=== PATIENT | female | born 1955 | race Caucasian/White ===

== ENCOUNTER 2016-08-30 11:07 | Inpatient (IN) | payer SELFPAY ==
[2016-08-30] VITALS (14 sets, daily range): BP systolic 104–132; BP diastolic 67–88; PULSE 70–112; RESP 17–20; TEMP 97.9–98.6; O2SAT 90–100
[~2016-08-30] VITALS: Ht 149.9 cm; Wt 60.5 kg
[2016-08-30] MEDS ORDERED: TRAZ100T4 PO (11:40)
[2016-08-30] MEDS ORDERED: LISI10TA3 PO (11:40)
[2016-08-30] MEDS ORDERED: RANI1TAB5 PO (11:40)
[2016-08-30] MEDS ORDERED: LISI-515 PO (11:40)
[2016-08-30] MEDS ORDERED: LEVO175T2 PO (11:40)
[2016-08-30] MEDS ORDERED: SODIUM CHLORIDE 0.9% FLUSH 10 ML FLUSH IVF PRN (11:45)
--- NOTE | 2016-08-30 11:47 | PD ---
HPI Chief Complaint: Chest Pain Time Seen by Provider: 11:32 Travel History International Travel<30 days: No Contact w/Intl Traveler<30days: No Traveled to known affect area: No History of Present Illness HPI The patient was seen and examined in the presence of the nurse. This patient complains of chest pain. Location is left upper chest. Severity is moderate. Duration 3 days. No alleviating factors. It is not exertional. She is not short of breath. No fever or cough. Denies chest wall injury. She says she had a stress test 15 years ago but nothing recent. 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 She does have hypertension PFS Past Medical History ?: Not Social History Alcohol Use: No Tobacco Use: Yes Substance Use: No Allergies-Medications (Allergen,Severity, Reaction): Coded Allergies: Penicillin (Verified Allergy, Mild, 08/30/16) Reported Meds & Prescriptions Reported Meds & Active Scripts Active Reported Ranitidine 75 (Ranitidine HCl) 75 Mg Tab 75 Mg PO DAILY Take 30 to 60 minutes before eating food or drinking beverages that cause heartburn. Levothyroxine (Levothyroxine Sodium) 175 Mcg Tab 175 Mcg PO DAILY Trazodone (Trazodone HCl) 100 Mg Tab 100 Mg PO HS Lisinopril 10 Mg Tab 10 Mg PO HS Lisinopril 20 Mg Tab 20 Mg PO DAILY Review of Systems General / Constitutional: No: Fever Eyes: No: Visual changes HENT: No: Headaches Cardiovascular: Positive: Chest Pain or Discomfort Respiratory: No: Shortness of Breath Gastrointestinal: No: Abdominal Pain Genitourinary: No: Dysuria Musculoskeletal: No: Pain Skin: No Rash Neurologic: No: Weakness Psychiatric: No: Depression Endocrine: No: Polydipsia Hematologic/Lymphatic: No: Easy Bruising Physical Exam Narrative GENERAL: Well-nourished, well-developed patient in no apparent distress. SKIN: Focused skin assessment reveals no rash and nodules. Skin is Warm and dry. HEAD: Atraumatic. Normocephalic. EYES: Pupils equal and round. No scleral icterus. No injection or drainage. ENT: No nasal bleeding or discharge. Mucous membranes pink and moist. NECK: Trachea midline. No JVD. CARDIOVASCULAR: Regular rate and rhythm. No murmur appreciated. RESPIRATORY: No accessory muscle use. Clear to auscultation. Breath sounds equal bilaterally. GASTROINTESTINAL: Abdomen soft, non-tender, nondistended. Hepatic and splenic margins not palpable. MUSCULOSKELETAL: No obvious deformities. No clubbing. No cyanosis. No edema. Has very prominent and readily reproducible chest wall tenderness in the left upper chest. She has visible wincing and pulling away a lot of pain when I palpate the area that she complains of having chest pain in. NEUROLOGICAL: Awake and alert. No obvious cranial nerve deficits. Motor grossly within normal limits. Normal speech. PSYCHIATRIC: Appropriate mood and affect; insight and judgment normal. Data Data Last Documented VS Vital Signs Date Time Temp Pulse Resp B/P Pulse Ox O2 Delivery O2 Flow Rate FiO2 08/30/16 12:56 102 17 111/75 99 Nasal Cannula 2 08/30/16 11:36 98.2 Orders Electrocardiogram (08/30/16 11:38) Basic Metabolic Panel (Bmp) (08/30/16 11:38) Ckmb (Isoenzyme) Profile (08/30/16 11:38) Complete Blood Count With Diff (08/30/16 11:38) Troponin I (08/30/16 11:38) Ecg Monitoring (08/30/16 11:38) Iv Access Insert/Monitor (08/30/16 11:38) Oximetry (08/30/16 11:38) Sodium Chloride 0.9% Flush (Ns Flush) (08/30/16 11:45) Acetamin-Hydrocod 325-5 Mg (Suring 5-325 (08/30/16 12:00) CKMB (08/30/16 11:50) CKMB% (08/30/16 11:50) Aspirin (Aspirin) (08/30/16 12:45) Prothrombin Time / Inr (Pt) (08/30/16 12:40) Act Partial Throm Time (Ptt) (08/30/16 12:40) Chest, Single Ap (08/30/16 ) Heparin Inj (Heparin Inj) (08/30/16 12:58) Aspirin Chew (Aspirin Chew) (08/30/16 12:57) Heparin Inj (Heparin Inj) (08/30/16 12:57) Metoprolol Tartrate (Lopressor) (08/30/16 13:00) Nitroglycerin 2% Oint (Nitroglycerin 2% (08/30/16 13:00) Admit Order (Ed Use Only) (08/30/16 13:02) Labs Laboratory Tests Test 08/30/16 11:50 White Blood Count 21.3 TH/MM3 Red Blood Count 6.00 MIL/MM3 Hemoglobin 16.9 GM/DL Hematocrit 49.7 % Mean Corpuscular Volume 82.9 FL Mean Corpuscular Hemoglobin 28.1 PG Mean Corpuscular Hemoglobin 34.0 % Concent Red Cell Distribution Width 12.9 % Platelet Count 344 TH/MM3 Mean Platelet Volume 8.7 FL Neutrophils (%) (Auto) 74.8 % Lymphocytes (%) (Auto) 13.1 % Monocytes (%) (Auto) 9.5 % Eosinophils (%) (Auto) 0.7 % Basophils (%) (Auto) 1.9 % Neutrophils # (Auto) 16.0 TH/MM3 Lymphocytes # (Auto) 2.8 TH/MM3 Monocytes # (Auto) 2.0 TH/MM3 Eosinophils # (Auto) 0.1 TH/MM3 Basophils # (Auto) 0.4 TH/MM3 CBC Comment DIFF FINAL Differential Comment Sodium Level 136 MEQ/L Potassium Level 3.9 MEQ/L Chloride Level 102 MEQ/L Carbon Dioxide Level 23.4 MEQ/L Anion Gap 11 MEQ/L Blood Urea Nitrogen 13 MG/DL Creatinine 0.98 MG/DL Estimat Glomerular Filtration 58 ML/MIN Rate Random Glucose 117 MG/DL Calcium Level 9.1 MG/DL Total Creatine Kinase 397 U/L Creatine Kinase MB 39.4 NG/ML Creatine Kinase MB % 9.9 % Troponin I 15.70 NG/ML [facility] Medical Decision Making Medical Screen Exam Complete: Yes Emergency Medical Condition: Yes Medical Record Reviewed: Yes Differential Diagnosis Differential diagnosis includes MS, angina, pericarditis, pleurisy, GERD, anxiety. Narrative Course I have reviewed the patient's electronic medical record. I reviewed her EKG which shows sinus rhythm but no ST elevation in consecutive leads. She does have what appears to be ST depression in one inferior lead and [address] elevation in aVL and maybe V2 Extended cardiac monitoring reveals sinus rhythm without ectopy Heart rate is 90 I gave her 4 baby aspirin IV placed CBC shows leukocytosis with normal hemoglobin and platelets Metabolic profile shows normal creatinine CK is elevated with an MB percent of 9.9 Troponin is significantly elevated at 15.7 Patient's EKG does not obviously meet STEMI criteria and she has such obvious chest wall component to her pain. Did not expect such an elevated cardiac enzymes set. Case reviewed in detail with pick up operator Dr. Raffi Nolan I repeated a second EKG Patient critically ill with an acute non-STEMI but having active pain and Dr. Vidal recommends emergent heart catheterization I gave her a 4000 unit heparin bolus as well as a dose of metoprolol and Nitropaste Her blood pressure is 115 systolic and is not quite high enough for nitroglycerin drip since it is under 120 Paramedics accompanied emergently take her to the catheterization lab She'll be admitted to [facility] Critical Care Narrative Aggregate critical care time was 40 minutes. Time to perform other separately billable procedures was not included in the critical care time. My time did not include minutes spent treating any other patients simultaneously or on activities that did not directly contribute to the patient's treatment. The services I provided to this patient were to treat and/or prevent clinically significant deterioration that could result in: Cardiopulmonary arrest, myocardial damage, cardiogenic shock I provided critical care services requiring my management, as noted below: Chart data review, documentation time, medication orders and management, vital sign assessments/reviewing monitor data, ordering and reviewing lab tests, ordering and interpreting/reviewing x-rays and diagnostic studies, care of the patient and discussion of the patient with the admitting physicians. Diagnosis Primary Impression: Acute non-ST elevation myocardial infarction (NSTEMI) Admitting Information Admitting Physician Requests: Joseph Brewster MD Aug 30, 2016 11:47
[2016-08-30] MEDS ORDERED: ACETAMINOPHEN/HYDROcodone 325 MG/5 MG TAB PO ONE (12:00)
[2016-08-30 12:06] LABS: BASOPHIL # 0.4 TH/MM3 (0-0.2); BASOPHIL % 1.9 % (0.0-2.0); EOSINOPHIL # 0.1 TH/MM3 (0-0.4); EOSINOPHIL % 0.7 % (0.0-4.0); HEMATOCRIT 49.7 % (35.0-46.0); HEMO FLAGS DIFF FINAL; LYMPH % 13.1 % (9.0-44.0); LYMPHOCYTE # 2.8 TH/MM3 (1.0-4.8); MEAN CELL VOLUME 82.9 FL (80.0-100.0); MEAN CORPUSCULAR HEMOGLOBIN 28.1 PG (27.0-34.0); MONO % 9.5 % (0.0-8.0); NEUT % 74.8 % (16.0-70.0); PLATELET COUNT 344 TH/MM3 (150-450); RED CELL DISTRIBUTION WIDTH 12.9 % (11.6-17.2); WHITE BLOOD COUNT 21.3 TH/MM3 (4.0-11.0)
[2016-08-30 12:11] LABS: POTASSIUM 3.9 MEQ/L (3.5-5.1)
[2016-08-30 12:14] LABS: BICARBONATE 23.4 MEQ/L (21.0-32.0)
[2016-08-30 12:33] LABS: CKMB 39.4 NG/ML (0.5-3.6)
[2016-08-30] MEDS ORDERED: ASPIRIN 325 MG TAB PO ONE (12:45)
[2016-08-30] MEDS ORDERED: HEPARIN SODIUM - IV 10,000 UNITS/10 ML VIAL IV STA (12:57)
[2016-08-30] MEDS ORDERED: ASPIRIN 81 MG CHEW TAB PO STA (12:57)
[2016-08-30] MEDS ORDERED: HEPARIN SODIUM - IV 10,000 UNITS/10 ML VIAL ONE ×2 (12:58→14:18)
[2016-08-30] MEDS ORDERED: NITROGLYCERIN 2% OINT 1 GM PACKET TOPICAL ONE (13:00)
[2016-08-30] MEDS ORDERED: METOPROLOL TARTRATE 50 MG TAB PO ONE (13:00)
[2016-08-30 13:05] LABS: APTT (PATIENT) 28.6 SEC (24.3-30.1)
[2016-08-30] MEDS ORDERED: HEPARIN-NS/PF INJ 500 ML ONE (13:05)
--- NOTE | 2016-08-30 13:06 | RADHPO ---
EXAM DATE/TIME: 08/30/2016 12:58 [place] COMPARISON: No previous studies available for comparison. INDICATIONS : STEMI alert. Chest pain. MEDICAL HISTORY : Hypertension. Irritable bowel syndrome. Thyroid disease. SURGICAL HISTORY : None. ENCOUNTER: Initial ACUITY: 3 days PAIN SCORE: 10/10 LOCATION: Left upper chest FINDINGS: A single view of the chest demonstrates the lungs to be symmetrically aerated without evidence of mas s, infiltrate or effusion. The cardiomediastinal contours are unremarkable. Osseous structures are intact. CONCLUSION: 1. No acute cardiopulmonary findings Leighton Rivera MD on August 30, 2016 at 13:04 Board Certified Radiologist. This report was verified electronically.
[2016-08-30] MEDS ORDERED: MIDAZOLAM HCL 2 MG/2 ML VIAL ONE (13:54)
[2016-08-30] MEDS ORDERED: ADENOSINE STRESS TEST INJ 90 MG/30 ML VIAL ONE (14:14)
[2016-08-30] MEDS ORDERED: SODIUM NITROPRUSSIDE 50 MG/2 ML VIAL ONE (14:25)
[2016-08-30] MEDS ORDERED: CLOPIDOGREL 300 MG TAB ONE (14:38)
[2016-08-30] MEDS ORDERED: TIROFIBAN INFUSION INJ 250 ML IV ONE (14:38)
[2016-08-30] MEDS ORDERED: TIROFIBAN INFUSION INJ 250 ML IV SCH (14:52)
[2016-08-30] MEDS ORDERED: MISC INFORMATION XX ONE (15:00)
[2016-08-30] MEDS ORDERED: SODIUM CHLORIDE 0.9% FLUSH 10 ML FLUSH IV FLUSH PRN (15:00)
--- NOTE | 2016-08-30 15:11 | CATHPROC ---
peerTransfer HIS Report Study Information Scheduled Start Study Start 08/30/2016 Aug 30 2016 1:27PM Referring Institution Admit Source Facility Department 1 Transfer in from another acute care facility [facility] - [facility] Parole Officer Physician and Clinical Staff Initial Raffi Kahn Job Estimator Arielle South,NUSRAT Recorder Evaristo Bolanos RCIS(BS) Scrub Santos Ricci,RT(R) Procedures Performed Procedure Location (Site) Vessel Name Coronary Angiograms LCA Left Coronary Coronary Angiograms RCA Right Coronary L Heart Cath LV Gram-hand inj. LV LV Ventricle Stent LAD Mid Left Coronary Wire insertion Fem Art (right) Femoral Art Equipment Time Hydraulic Riveter Description Size Mfg Part Number Used/Scraped [id number] 14:09 [employer] WIRE, ASAHI PROWATER 180CM 180CM Used *[id number] TRANSDUCER, TRUWAVE [id number] 13:31 SOLORZANO VILLARREAL * Used W/STOCKCOCK *[id number] [id number] *[id number] [id number] *[phone] *[id number] 13:31 MEDLINE IND[employer] PACK, CCL CUSTOM * Used *[id number] 13:31 [employer] PACER PEN, SKIN DUAL W/ RULER * Used *[id number] 14:35 MEDTRONIC STENT, 2.5 12 INTEGRITY 2.5 12 Used *[id number] 14:25 MEDTRONIC STENT, 2.5 8 INTEGRITY 2.5 8 Used *[id number] 13:55 BeMo MEDICAL 30 BARBI INDEFLATOR Used *[id number] 13:55 BeMo MEDICAL SHEATH, FR6.5 PRELUDE 11CM FR 6.5 038ACT Used *[id number] 13:31 [employer]Mo MEDICAL WIRE, 3MMJ .035 180CM 180CM Used *[id number] 13:31 NAMIC MANIFOLD, 4 PORT * Used *[id number] 13:31 NYCOMED OMNIPAQUE, 350 MG, 150ML 150ML [id number] Used [id number] 13:31 TIM MEDICAL BLANKET,WARM AIR CCL * Used *[id number] 13:31 TERUMO MEDICAL SHEATH, FR4 TERUMO (10CM) FR 4 [id number] Used 14:13 [employer] PRIME WIRE, VERRATA 185CM 185CM [id number] *[id number] Used Equipment Model, Serial, Lot Number and Expiration Data Description Model Number Serial Number Lot Number Expiration Date FER WEST [id number] 07-25-2019 STENT, 2.5 12 INTEGRITY [id number] 03-01-2018 STENT, 2.5 8 INTEGRITY [id number] 12-15-2017 History: Current Medications Medication Dosage/Unit Route Frequency Last Date/Time Taken LISINOPRIL History: Allergies Allergy Reaction Penicillin History: Risk Factors Family History of Hypertension Dyslipidemia Previous NE Previous Heart Failure Premature CAD Yes No No No No Prior Valve Prior PCI Prior CABG Surgery No No No Cerebrovascular Peripheral Artery Chronic Lung On Dialysis Diabetes Disease Disease Disease No No No No No History: Symptoms/Diagnosis Selection Items Chest pain History: Stress Tests Stress or Imaging Studies Performed No Labs Hgb (g/dl) Hct (%) RBC (MIL/MM3) WBC (l/cumm) Platelets (thousands) 12.00-18.00 37.00-55.00 4.80-6.20 4.80-10.80 140.00-450.00 16.9 49.7 6 21.3 344 Glucose (mg/dl) BUN (mg/dl) Creatinine (mg/dl) BUN:Creatinine (1:x) 60.00-110.00 8.00-20.00 0.10-9.00 10.00-20.00 117 13 0.9 14.4 Na (meq/l) K (meq/l) 138.00-146.00 3.80-5.10 136 3.9 PT (sec) PTT (sec) INR (PTT:PT) 9.40-11.40 25.10-32.70 0.50-2.00 11 28.6 1 Troponin I (ng/ml) CPK (u/l) CPK-MB (ng/ML) 0.40-2.30 37.00-289.00 0.00-7.00 15.7 39.4 9.9 Medication Medication Total Dose (Bolus/Oral) Medication Total Dosage/Unit 1% XYLOCAINE 20 mL AGGRASTAT BOLUS 29.7 mL HEPARIN 3600 units PLAVIX 600 mg VERSED 1 mg Medications (Bolus/Oral) Medication Time Given Dosage/Unit Administered By Reason VERSED 08/30/2016 1:59:00 PM 1 mg Arielle South 1 mg VERSED given in lab by Arielle South RN in Right Antecubital via Peripheral IV. Ordered by Raffi Llanes. 1% XYLOCAINE 08/30/2016 2:02:54 PM 20 mL Raffi Nolan 20 mL 1% XYLOCAINE given in lab by Raffi Nolan in Right Groin via Subcutaneous. Ordered by Raffi Sauceda. HEPARIN 08/30/2016 2:12:00 PM 3600 units Arielle South 3600 units HEPARIN given in lab by Arielle South RN in Right Antecubital via Peripheral IV. Order ed by Raffi Nolan. AGGRASTAT BOLUS 08/30/2016 2:40:54 PM 29.7 mL Arielle South 29.7 mL AGGRASTAT BOLUS given in lab by Arielle South RN in Right Antecubital via Peripheral IV. Ordered by Raffi Nolan. PLAVIX 08/30/2016 2:45:00 PM 600 mg Arielle South 600 mg PLAVIX given in lab by Arielle South RN via Oral. Ordered by Raffi Nolan. Medication (Drip) Medication Time Given Dosage/Unit Concentration/Unit Diluent (ml) Solution ADENOSINE DRIP 08/30/2016 2:21:29 PM 140 mcg/kg/min 90 mg 90 NaCl .9 140 mcg/kg/min ADENOSINE DRIP given in lab by Arielle South RN in Right Antecubital via Periphera l IV. Pump/Drip Flow = 498.12 ml/hr using NaCl .9 with a concentration of 90 mg in 90 ml. Ordered by Raffi Nolan. AGGRASTAT DRIP 08/30/2016 2:41:00 PM 0.15 mcg/kg/min 12.5 mg 250 NaCl .9 0.15 mcg/kg/min AGGRASTAT DRIP given in lab by Arielle South RN in Right Antecubital via Peripher al IV. Pump/Drip Flow = 10.67 ml/hr using NaCl .9 with a concentration of 12.5 mg in 250 ml. Ordered by Raffi Nolan. IV Solutions 08/30/2016 1:39:50 PM 0 mL (IV) 500 NaCl .9 IV Solutions given in lab by Arielle South, RN in Right Antecubital via Peripheral IV. Pump/Drip F low = 20 ml/hr using NaCl .9. Ordered by Raffi Nolan. Initial Case Assessment Cardiovascular HR Rhythm NIBP Chest Pain 72 STEMI 99/74 0 Edema Present Skin color Skin None Normal Warm Dry Circulatory - Right Pulses Dorsalis Pedis Femoral 2 2 Scale (0,1,2,3,4,d) Circulatory - Left Pulses Dorsalis Pedis Femoral 2 2 Scale (0,1,2,3,4,d) Circulatory - Lower Extremities Color Lower Right Color Lower Left Normal Normal Neurological State Oriented to time-place- Alert Moves all extremities person Respiration - General Respiration Rate SpO2 (%) (B/min) 23 99 Final Case Assessment Cardiovascular HR Rhythm NIBP Chest Pain 72 STEMI 99/74 0 Edema Present Skin color Skin None Normal Warm Dry Circulatory - Right Pulses Dorsalis Pedis Femoral 2 2 Scale (0,1,2,3,4,d) Circulatory - Left Pulses Dorsalis Pedis Femoral 2 2 Scale (0,1,2,3,4,d) Circulatory - Lower Extremities Color Lower Right Color Lower Left Normal Normal Neurological State Oriented to time-place- Alert Moves all extremities person Respiration - General Respiration Rate SpO2 (%) (B/min) 23 99 Chronological Log Time Study Chronological Log 13:39:29 Patient arrived via Bed. 13:39:30 Patient Name, D.O.B, / Armband Verified By R.N. 13:39:31 Consent signed by the physician and the patient and verified by the Adult Parole Officer staff. 13:39:31 Pre-op and post- op instructions given; patient acknowledges understanding of instructions. Verbal Stimulation=2 Physical Stimulation=2 Airway=2 Respiration=~RESPIRATION~ TOTAL=8. (0=abse nt, 1=limited, 13:39:38 2=present) 13:39:41 Patient has been NPO for Less than 6Hrs. 13:39:42 Skin Breakdown- 13:39:44 Patient Warmer Placed on the Table. 13:39:45 Disposable Defibrillator Pads Placed On Patient. 13:39:49 A # 20 IV was noted in the Antecubital (left). Grade = 0 13:39:50 A # 20 IV was noted in the Antecubital (right). Grade = 0 IV Solutions given in lab by Arielle South, RN in Right Antecubital via Peripheral IV. Pump/ Drip Flow = 20 ml/hr 13:39:50 using NaCl .9. Ordered by Raffi Nolan. 13:39:51 History and physical on the chart or being dictated. Assessment: Initial Case, HR=72 BPM, Rhythm=STEMI, NIBP=99/74 mmhg, Chest Pain=0, Edema=None, Color=Normal, Skin = Warm, Dry Right Pulses: Flo Ped=2, Femoral=2 Left Pulses: Flo Ped=2, Femoral=2 13:39:51 Lower Right Extremities: Color=Normal Lower Left Extremities: Color=Normal Neurological: State=Alert, Ox3, [place] Respiration: Resp=23 B/min, SpO2=99 % Vitals capture started with the following parameters, Patient=Adult, Interval=15 min, Initial P izvjxrb=639 mmHg, 13:43:53 Deflation Rate=5 mmHg 13:44:33 HR=95 bpm, JZPY=873/76 mmhg, Resp=17 B/min, Pain=0, Eri=10, Martinez=2 13:47:22 Bilateral groins prepped with 2% chlorhexidine, and with a 3 min. waiting time. 13:49:23 HR=72 bpm, BPOI=483/75 mmhg, SpO2=97.0 %, Resp=12 B/min, Pain=0, Eri=10, Martinez=2 13:50:59 Pressure channel 1 zeroed. 13:53:57 MD arrived. 13:54:22 HR=71 bpm, NIBP=99/74 mmhg, SpO2=97.0 %, Resp=13 B/min, Pain=0, Eri=10, Martinez=2 13:58:52 Reference ECG taken 1 mg VERSED given in lab by Arielle South, RN in Right Antecubital via Peripheral IV. Ordere d by An, 13:59:00 Raffi. 13:59:21 HR=74 bpm, JXVO=657/76 mmhg, SpO2=95.0 %, Resp=11 B/min, Pain=0, Eri=10, Martinez=2 Time Out. Correct patient, correct procedure,correct physician, power injector not loaded with contrast with surgical 14:02:09 team present. Time Out Concurred by MD, individual staff in procedure 14:02:10 Case Start 20 mL 1% XYLOCAINE given in lab by Raffi Nolan in Right Groin via Subcutaneous. Ordered by An, 14:02:54 Raffi. 14:04:22 HR=75 bpm, SCFQ=252/68 mmhg, SpO2=96.0 %, Resp=16 B/min, Pain=0, Eri=10, Martinez=2 14:05:10 A SHEATH, FR4 TERUMO (10CM) FR 4 was advanced into the Fem Art (right) using the Percutaneo us technique. 14:05:21 Activated Clotting Time Drawn A JR 4.0 INFINITI CATHETER FR 4 was advanced over a wire. OMNIPAQUE, 350 MG, 150ML 150ML was us ed for 14:05:32 injections. Recorded Pressure: LV, HR=72, Condition=Condition 1 14:06:08 (Left Ventricle) LV 103/5/11 14:06:12 The LV was manually injected with 8 cc's and visualized. OMNIPAQUE, 350 MG, 150ML 150ML use d. Recorded Pressure: LV, Ao, HR=71, Condition=Condition 1 14:06:24 (Left Ventricle) LV 97/-3/23, (Aorta) Ao 99/68/82 Recorded Pressure: Ao, HR=73, Condition=Condition 1 14:06:32 (Aorta) Ao 104/70/84 14:06:53 The RCA was injected and visualized at various angles. OMNIPAQUE, 350 MG, 150ML 150ML used . After removing the current catheter a JL 4.0 INFINITI CATHETER FR 4 was advanced over a WIRE, 3 MMJ .035 180CM 14:07:01 180CM. 14:07:08 The LCA was injected and visualized at various angles. OMNIPAQUE, 350 MG, 150ML 150ML used . 14:09:00 ACT (Normal Range 90-180) = 179 14:09:26 HR=72 bpm, HMME=910/69 mmhg, SpO2=97.0 %, Resp=19 B/min, Pain=0, Eri=10, Martinez=2 3600 units HEPARIN given in lab by Arielle South RN in Right Antecubital via Peripheral IV. Ordered by An, 14:12:00 Raffi. 14:12:39 Catheter was removed A SHEATH, FR6.5 PRELUDE 11CM FR 6.5 was exchanged in the Fem Art (right). This was necessary in order to 14:12:59 accomodate a larger catheter. 14:14:25 HR=73 bpm, CKML=287/70 mmhg, SpO2=96.0 %, Resp=16 B/min, Pain=0, Eri=10, Martinez=2 A XB 3.5 GUIDE CATHETER FR 6 was advanced over a wire. OMNIPAQUE, 350 MG, 150ML 150ML was used for 14:17:47 injections. 14:18:05 A PRIME WIRE, VERRATA 185CM 185CM was inserted via Fem Art (right). 14:18:17 Flow Wire was was placed in the LAD Mid. The FFR measures 0.8 percent. The IFR measures ~IF R~ Percent. 14:19:26 HR=73 bpm, HAWM=450/71 mmhg, SpO2=97.0 %, Resp=18 B/min, Pain=0, Eri=10, Martinez=2 140 mcg/kg/min ADENOSINE DRIP given in lab by Arielle South, RN in Right Antecubital via Per ipheral IV. 14:21:29 Pump/Drip Flow = 498.12 ml/hr using NaCl .9 with a concentration of 90 mg in 90 ml. Ordered by Raffi Nolan. 14:24:23 HR=68 bpm, KABF=622/78 mmhg, SpO2=96.0 %, Resp=16 B/min, Pain=0, Eri=10, Martinez=2 14:24:57 Activated Clotting Time Drawn An STENT, 2.5 8 INTEGRITY 2.5 8 Bare Metal Stent was inserted through a XB 3.5 GUIDE CATHETER F R 6 over a 14:26:49 PRIME WIRE, VERRATA 185CM 185CM. A STENT, 2.5 8 INTEGRITY 2.5 8 was deployed using a 30 BARBI INDEFLATOR at 9 atmospheres for 12 s econds in the 14:27:21 LAD Mid. 14:29:26 HR=70 bpm, NGDQ=255/75 mmhg, SpO2=98.0 %, Resp=14 B/min, Pain=0, Eri=10, Martinez=2 14:30:00 Delivery device removed An STENT, 2.5 12 INTEGRITY 2.5 12 Bare Metal Stent was inserted through a XB 3.5 GUIDE CATHETER FR 6 over a 14:34:17 PRIME WIRE, VERRATA 185CM 185CM. 14:34:27 HR=70 bpm, JYYA=548/78 mmhg, SpO2=97.0 %, Resp=24 B/min, Pain=0, Eri=10, Martinez=2 14:34:52 ACT (Normal Range 90-180) = 253 A STENT, 2.5 12 INTEGRITY 2.5 12 was deployed using a 30 BARBI INDEFLATOR at 9 atmospheres for 12 seconds in the 14:35:09 LAD Mid. 14:37:02 Delivery device removed 14:39:24 HR=65 bpm, GUVH=457/84 mmhg, SpO2=98.0 %, Resp=19 B/min, Pain=0, Eri=10, Martinez=2 14:39:49 Wire removed 14:39:56 Catheter was removed 14:40:07 Case End 29.7 mL AGGRASTAT BOLUS given in lab by Arielle South RN in Right Antecubital via Periphera l IV. Ordered by 14:40:54 Raffi Nolan. 0.15 mcg/kg/min AGGRASTAT DRIP given in lab by Arielle South RN in Right Antecubital via Pe ripheral IV. 14:41:00 Pump/Drip Flow = 10.67 ml/hr using NaCl .9 with a concentration of 12.5 mg in 250 ml. Ordered b y Raffi Nolan. Assessment: Final Case, HR=72 BPM, Rhythm=STEMI, NIBP=99/74 mmhg, Chest Pain=0, Edema=None, Color=Normal, Skin = Warm, Dry Right Pulses: Flo Ped=2, Femoral=2 Left Pulses: Flo Ped=2, Femoral=2 14:41:35 Lower Right Extremities: Color=Normal Lower Left Extremities: Color=Normal Neurological: State=Alert, Ox3, [place] Respiration: Resp=23 B/min, SpO2=99 % 14:44:58 PZNP=034/79 mmhg, Pain=0, Eri=10, Martinez=2 14:45:00 600 mg PLAVIX given in lab by Arielle South RN via Oral. Ordered by Raffi Nolan. 14:49:30 TUDU=921/81 mmhg, Pain=0, Eri=10, Martinez=2 14:54:25 In the Fem Art (right) the sheath was sutured in place by Raffi Nolan. 14:54:29 Sterile dressing applied to site 14:54:30 No case complications noted. 14:54:31 Cine recording checked. 14:54:34 Bedside Report will be given. 14:54:35 Implantable Device card placed in patient's chart. 14:54:38 Contrast Scanned 14:54:42 A Left Heart Cath was performed. 14:54:43 [facility] moved to [facility] End Study - Contrast Media Used In Study Contrast Total Opened (mL) Total Used (mL) Total Wasted (mL) Omnipaque 100 100 0 End Study - Maximum Contrast Load Max Contrast Load (mL) 329.5 End Study - Radiation Exposure Fluoro Time (minutes) 7.6 End Study - Patient Disposition Complications Transferred To Interventional Outcome No Critical Care Bed successful
[2016-08-30] MEDS ORDERED: IOHEXOL 350 MG/ML 100 ML BTL (for Cath Lab) OTHER ONE (15:43)
--- NOTE | 2016-08-30 16:59 | MB ---
cc: ARIEL DUNN M.D. DATE OF CONSULTATION 08/30/2016 HISTORY Chayo is a very pleasant 61-year lady who developed chest pain on Monday, intermittent. Comes to the [facility] and found to have anteroseptal Q-waves with biphasic T-waves V1, V2, V3. ST elevation of probably 2 mm with what looks like some possible reciprocal changes in the inferior leads and a left anterior fascicular block. Also 1-[address]-segment elevation in lead I and aVL. The patient was having chest pain in the [facility]. A STEMI was called. She otherwise denies any fever, chills, cough, GI or bleeding, orthopnea, paroxysmal nocturnal dyspnea, syncope or dizziness. PAST MEDICAL HISTORY Per history of present illness. SOCIAL HISTORY Denies tobacco or alcohol use. ALLERGIES PENICILLIN. MEDICATIONS PRIOR TO ADMISSION: 1. Ranitidine. 2. Levothyroxine. 3. Trazodone. 4. Lisinopril 10. Medications in the hospital: 1. Metoprolol 50 times one. 2. 2 inch of Nitro paste. 3. Heparin bolus. 4. Aspirin 324. PHYSICAL EXAMINATION VITAL SIGNS: Pulse 102, respiratory rate 17, temperature 98.2, blood pressure 111/75. Saturation 99% on 2 liters nasal cannula. GENERAL: She is alert and oriented times three. In no distress distress. NECK: Supple. No JVD or bruit. CARDIOVASCULAR: Normal S1-S2. No murmurs, rubs, or gallops. . ABDOMEN: Soft and nontender. Nondistended with positive bowel sounds. EXTREMITIES: No extremity edema. IMAGING A chest x-ray shows no acute cardiopulmonary findings. LABORATORY DATA White count 21.3, hemoglobin 16.9, hematocrit 49.7, platelet count 344. Sodium 136, potassium 3.9, chloride 102, bicarbonate 22.4, BUN 13, creatinine 0.98. CK 397, CK-MB is 39.4 and CK-MB percent is 9.9%. Troponin is 15.70. INR 1.0. EKG shows normal sinus rhythm at 91 beats per minute, anteroseptal Q-waves with [address]-segment elevation in lead V2, V1, V3. Biphasic T-waves V1, V2, V3, V4. ST elevation of 1-2 mm in lead I, aVL with T-wave inversions as well. Left anterior fascicular block with J point depression of 1 mm II, III, aVF. DIAGNOSES She has the following diagnoses: 1. Subacute ST-elevation myocardial infarction. 2. Polycythemia. 3. Elevated white count. DISCUSSION At this point in time the patient is still having chest pain, therefore STEMI alert has been called. I explained to the patient the risk of the procedure. There is a 5-10% chance of , stroke, heart attack, bleeding, infection, need for dialysis, need for emergency bypass surgery, need for surgery, need for blood transfusion, anaphylaxis, arrhythmia, bleeding, infection. The patient understands and consents. The plan is for emergent left heart catheterization. I agree with aspirin and heparin, nitro and beta blockers. MD LUIS Her/KK /2:00 PM /4:38 PM
[2016-08-30] MEDS ORDERED: SODIUM CHLORIDE 0.9% FLUSH 10 ML FLUSH IV FLUSH SCH (21:00)
[2016-08-30] MEDS ORDERED: CARVEDILOL 3.125 MG TAB PO SCH (21:00)
[2016-08-30] MEDS ORDERED: FUROSEMIDE 20 MG/2 ML VIAL IV PUSH ONE (21:00)
[2016-08-30] MEDS ORDERED: ATORVASTATIN 10 MG TAB PO SCH (21:00)
--- NOTE | 2016-08-30 22:25 | MA ---
cc: ARIEL DUNN M.D. DATE: 08/30/2016 PROCEDURE PERFORMED: 1. Left heart catheterization. 2. Left ventriculography. 3. Coronary angiography. 4. FFR of the iep-cl-xmwuab LAD. INDICATION: STEMI. Unstable angina. [place] [employer], class IV angina. Cardiomyopathy. Congestive heart failure. PROCEDURE: The patient was brought to the Cardiac Catheterization Laboratory, prepped and draped in the usual sterile fashion. 10 cc of 1% lidocaine was used to locally anesthetize the right common femoral artery. A 4 Vietnamese sheath was successfully placed in the right common femoral artery. 4 Vietnamese JR4 and JL4 catheters were used to perform left and right coronary angiography and left ventriculography. Also note in traversing the right common iliofemoral artery there was difficulty. I had to steer the 0.035 J-tip guide wire beyond this segment. Thereafter all catheter exchanges were done over a long 0.035 J-tip guide wire. FINDINGS: Opening pressure 100/5/10, ejection fraction 35 to 40%. The anterior wall is actually hypokinetic. The apical actually has normal wall motion. The inferior wall appears to be possibly mildly hypokinetic. The anterior base is hypokinetic. The right coronary is dominant. It is occluded in the proximal segment with bkoht-lq-mrdva collaterals supplying a very small probably 1.5 millimeter mid to distal vessel which actually appears to have some competitive flow in the mid to distal segment. The RV branch is again small, 1 millimeter in diameter, no significant obstructive disease. The left main coronary artery has no significant obstructive disease. The left circumflex vessel has no significant obstructive disease. It supplies grade 4 collaterals to the right PDA. The first obtuse marginal vessel is a small to medium size vessel with an ostial proximal 95% stenosis which is probably a 2 mm vessel in diameter at most. The second obtuse marginal vessel is a small to medium size vessel with an ostial 30% stenosis. LAD is transapical, has a proximal mid 60% stenosis at the bifurcation with a medium to large diagonal vessel which itself has a 50-60% ostial proximal stenosis. The LAD is transapical. In the mid to distal segment, there is a 70% stenosis. Also note the first diagonal artery has a distal bifurcation. The medial branch of the distal bifurcation has an ostial proximal 75% stenosis. A 6-Vietnamese sheath was exchanged for a 4 Vietnamese sheath. Initial ACT 179. 70 units per kilo of heparin was given. ACT 253. 6-Vietnamese sheath exchanged for a 4-Vietnamese sheath, 6-Vietnamese XB2.5 guide and a 0.014 volcano pressure wire was placed in the proximal LAD. The introducer was removed and the guide catheter was thoroughly flushed with 20 cc of normal saline, pressure waveforms were normalized. The 0.014 pressure volcano guide wire was then placed into the distal LAD. The initial FFR prior to any adenosine infusion was 0.80. Based on this criteria we proceeded with PCI of the xwq-vr-apoxtq LAD with a 258 integrity stent, one inflation 10 atmospheres for 20 seconds. This did reproduce the patient's chest pain. Repeat angiography revealed a residual 75% stenosis just distal to this stent, also the FFR at rest was still 0.77, therefore, I did think it was medically necessary to place a second 25 12 integrity stent just distal to the initially placed stent, one inflation 9 atmospheres for 20 seconds. Stenosis went from 70% to 0% with JACQUELYN-3 flow. Again the patient did experience her typical chest pain with stent deployment which was relieved status post balloon deflation and removal. NOTE The diagnosis was difficult as the patient essentially had a subacute presentation with symptoms beginning Monday, so she was not actually having an acute STEMI but she was still having anginal symptoms and chest pain, therefore, again I did think that PCI was medically necessary. Stenosis went from 70% to 0% with JACQUELYN-3 flow. CONCLUSION 1. Subacute STEMI presentation with ongoing resting angina, [place] [employer], class IV angina. Culprit 70% stenosis in the mid to distal LAD with a resting FFR 0.80. 2. Otherwise severe three vessel coronary artery disease in the right dominant system as detailed above. 3. Cardiomyopathy, CHF with ejection fraction of 35 to 40%, akinesis of the anterior wall with well preserved wall motion in the apical anterior wall and inferior apical wall, mild hypokinesis in the inferior wall, hyperkinesis in the anterior basilar wall. 4. Successful PCR with bare metal stent x2 in the mid to distal LAD from 70% to 0% with JACQUELYN-3 flow. 5. Recommend aspirin 162 milligrams daily, Plavix 600 milligrams load then 75 milligrams a day for 12 to 15 months. 6. Aggrastat drip per protocol. 7. NAJMA inhibitor and beta-ish if hemodynamically tolerated and start statin therapy. MD LUIS Her/DEVI /2:45 PM /9:55 PM
[2016-08-31] VITALS (9 sets, daily range): BP systolic 112–129; BP diastolic 70–82; PULSE 70–95; RESP 18; O2SAT 94–96
[2016-08-31 04:08] LABS: AUTOMATED NEUTROPHIL # 11.2 TH/MM3 (1.8-7.7); BASOPHIL # 0.1 TH/MM3 (0-0.2); BASOPHIL % 0.5 % (0.0-2.0); EOSINOPHIL # 0.3 TH/MM3 (0-0.4); EOSINOPHIL % 2.1 % (0.0-4.0); HEMATOCRIT 40.7 % (35.0-46.0); HEMO FLAGS DIFF FINAL; LYMPH % 17.7 % (9.0-44.0); LYMPHOCYTE # 2.9 TH/MM3 (1.0-4.8); MEAN CELL VOLUME 82.8 FL (80.0-100.0); MEAN CORPUSCULAR HEMOGLOBIN 28.4 PG (27.0-34.0); MEAN CORPUSCULAR HGB CONC 34.3 % (32.0-36.0); MONO % 10.4 % (0.0-8.0); NEUT % 69.3 % (16.0-70.0); PLATELET COUNT 276 TH/MM3 (150-450); RED BLOOD COUNT 4.91 MIL/MM3 (4.00-5.30); RED CELL DISTRIBUTION WIDTH 13.7 % (11.6-17.2); WHITE BLOOD COUNT 16.2 TH/MM3 (4.0-11.0)
[2016-08-31 04:40] LABS: BICARBONATE 24.4 MEQ/L (21.0-32.0)
[2016-08-31 04:42] LABS: HDL CHOLESTEROL 39.7 MG/DL (40.0-60.0)
[2016-08-31] MEDS ORDERED: RAMIPRIL 2.5 MG CAP PO SCH (09:00)
[2016-08-31] MEDS ORDERED: CLOPIDOGREL 75 MG TAB PO SCH (09:00)
[2016-08-31] MEDS ORDERED: ASPIRIN 81 MG CHEW TAB PO SCH (09:00)
[2016-08-31 10:02] LABS: I-STAT POTASSIUM 3.8 MMOL/L (3.5-4.9)
[2016-08-31] MEDS ORDERED: SODIUM CHLORIDE 0.9% FLUSH 10 ML FLUSH PRN (10:30)
[2016-08-31] MEDS ORDERED: MISC INFORMATION XX ONE (10:30)
--- NOTE | 2016-08-31 10:44 | MA ---
cc: ARIEL DUNN M.D. DATE: 08/31/2016 PROCEDURE Left heart catheterization, coronary angiography. INDICATIONS STEMI, pulseless electrical activity, CAD, cardiac arrest. DETAILS OF PROCEDURE The patient is brought to the cardiac catheterization laboratory, prepped and draped in the usual sterile fashion. An Impella pump was placed by Dr. Gandara through the left femoral access. Mean arterial pressure was determined at [address] in [address] I then gained access to the right femoral artery, placed a 6-Divehi XB 3.5 guide into the left main. Coronary angiography revealed widely patent stents in the mid LAD, moderate diffuse disease in the proximal LAD up to 50% angiographically, moderate to large diagonal vessel with an ostial proximal 80-90% stenosis with a 30 degree angulation off the LAD. There are tybo-uu-bjrbv collaterals to the right PDA, however, as I recall from yesterday the right PDA appears to be much smaller today in diameter, probably 0.5 mm diameter at most suggesting severe spasm and/or under-perfusion. CONCLUSIONS 1. Pulseless electrical activity. 2. Widely patent stents in the LAD as detailed above. 3. Severe three-vessel coronary artery disease in a right dominant system. RECOMMENDATIONS Recommend stat. CHEN to rule out papillary muscle rupture and/or free wall rupture as the patient actually presented sub-acutely with the index event on Monday and presented on Monday with chest pain. Prognosis is poor. I will continue supportive care with Impella pump until CHEN is performed. Further recommendations pending the results of the CHEN. MD LUIS Her/BEE /10:18 AM /10:27 AM
--- NOTE | 2016-08-31 11:08 | CATHPROC ---
[employer] HIS Report Study Information Admission Scheduled Start Study Start 08/30/2016 08/31/2016 Aug 31 2016 9:34AM Referring Institution Admit Source Facility Department 1 Emergency department [facility] - Marine Tower Operator Physician and Clinical Staff Initial Flor Beck Inseminator Sofía ChopraRN Additional Raffi Kahn Inseminator Arielle South,NUSRAT Recorder Lisa Spears,RT(R) (BS) Scrub Trini العراقي,GAS OPERATIONS ANALYST TECH2 Procedures Performed Procedure Location (Site) Vessel Name Impella Fem Art (right) Femoral Art Equipment Time Automotive Specialty Technician Description Size Mfg Part Number Used/Scraped 09:51 ABIOMED PUMPSET, CP IMPELLA 4.0 4.0 [id number] Used TRANSDUCER, TRUWAVE [id number] 09:45 SOLORZANO CHOPRA * Used W/STOCKCOCK *[id number] *[id number] 09:45 [employer] PACK, CCL CUSTOM * Used *[id number] 09:45 Repair Report PACER PEN, SKIN DUAL W/ RULER * Used *[id number] 10:58 MEDTRONIC BALLOON, 2.5 X 12MM EUPHORA 12MM Used *[id number] 09:45 [email or web address] MEDICAL SHEATH, FR6.5 PRELUDE 11CM FR 6.5 038ACT Used *[id number] 09:45 [email or web address] MEDICAL WIRE, 3MMJ .035 180CM 180CM Used *[id number] 09:45 NAMIC MANIFOLD, 4 PORT * Used *[id number] 09:45 NAMIC TUBING, HIGH PRESSURE 48" 48" Used *[id number] 09:45 NYCOMED OMNIPAQUE, 350 MG, 150ML 150ML [id number] Used [id number] 09:45 [employer] MEDICAL BLANKET,WARM AIR CCL * Used *[id number] History: Current Medications Medication Dosage/Unit Route Frequency Last Date/Time Taken LISINOPRIL History: Allergies Allergy Reaction Penicillin History: Risk Factors Family History of Hypertension Dyslipidemia Previous MN Previous Heart Failure Premature CAD Yes No No No No Prior Valve Prior PCI Prior CABG Surgery No No No Cerebrovascular Peripheral Artery Chronic Lung On Dialysis Diabetes Disease Disease Disease No No No No No History: Symptoms/Diagnosis Selection Items Chest pain History: Stress Tests Stress or Imaging Studies Performed No Labs Hgb (g/dl) Hct (%) 12.00-18.00 37.00-55.00 14.6 43 Glucose (mg/dl) BUN (mg/dl) Creatinine (mg/dl) BUN:Creatinine (1:x) 60.00-110.00 8.00-20.00 0.10-9.00 10.00-20.00 119 15 1.1 13.6 Na (meq/l) K (meq/l) Cl (meq/l) 138.00-146.00 3.80-5.10 101.00-111.00 138 3.8 105 CPK-MB (ng/ML) 0.00-7.00 Not Drawn Medication Medication Total Dose (Bolus/Oral) Medication Total Dosage/Unit 1% XYLOCAINE 20 mL EPINEPHRINE 03/999 0.3 mg HEPARIN 7000 units Medications (Bolus/Oral) Medication Time Given Dosage/Unit Administered By Reason 1% XYLOCAINE 08/31/2016 9:46:59 AM 20 mL MadisonatSumeetkar 20 mL 1% XYLOCAINE given in lab by Flor Gandara in Right Groin via Subcutaneous. EPINEPHRINE 03/999 08/31/2016 9:53:15 AM 0.3 mg QuadratSumeetkar 0.3 mg EPINEPHRINE 03/999 given in lab via Peripheral IV Dr Lynch HEPARIN 08/31/2016 9:54:36 AM 7000 units Arielle South 7000 units HEPARIN given in lab by Arielle South, NUSRAT via Peripheral IV. Chronological Log Time Study Chronological Log 9:25:35 Patient arrived via Bed CPR in progress 9:25:45 Patient Name, D.O.B, / Armband Verified By R.N. 9:30:15 CPR in progress Vitals capture started with the following parameters, Patient=Adult, Interval=15 min, Initial Mtjlgwfu=497 mmHg, 9:33:41 Deflation Rate=5 mmHg 9::43 Vitals capture stopped. Vitals capture started with the following parameters, Patient=Adult, Interval=5 min, Initial P mnkxwwv=582 mmHg, 9:33:51 Deflation Rate=5 mmHg 9:35:16 CPR in progress 9:35:30 VG=078 bpm, AEGL=786/95 mmhg, Resp=58 B/min 9:40:16 CPR in progress 9:40:23 AA=419 bpm, PWOP=161/27 mmhg 9:42:31 Vitals capture stopped. Vitals capture started with the following parameters, Patient=Adult, Interval=5 min, Initial P pmajeey=216 mmHg, 9:43:40 Deflation Rate=5 mmHg 9:44:04 MY=179 bpm, LXNT=416/80 mmhg, SpO2=84.0 %, Eri=10, Martinez=6 9:44:06 Reference ECG taken 9:45:17 CPR in progress 9:46:59 20 mL 1% XYLOCAINE given in lab by Flor Gandara in Right Groin via Subcutaneous. 9:48:46 Pressure channel 1 zeroed. 9:50:18 CPR in progress 9:50:27 DL=672 bpm, LHSS=038/78 mmhg, Resp=16 B/min 9:52:25 A sheath was advanced into the Fem Art (right) using the ~TECHNIQUE~ technique. 9:53:15 0.3 mg EPINEPHRINE 03/999 given in lab via Peripheral IV Dr Lycnh 9:54:05 PZ=190 bpm, AALD=318/87 mmhg, AxM1=557.0 % 9:54:18 CPR in progress 9:54:36 7000 units HEPARIN given in lab by Arielle South, NUSRAT via Peripheral IV. A PIGTAIL STR INFINITI CATHETER FR 6 was advanced over a wire. OMNIPAQUE, 350 MG, 150ML 150ML was used for 9:55:34 injections. An PUMPSET, CP IMPELLA 4.0 4.0 was advanced into the left ventricle . Proper placement was confirmed under 9:55:55 fluoroscopy and the catheter was sutured in place. 10:00:44 Vitals capture stopped. 10:01:03 NIBP STAT measurement started. 10:01:43 OU=053 bpm, SSLO=257/88 mmhg, SpO2=62.0 %, Resp=20 B/min 10:06:40 Access site was Right Femoral Artery. 10:06:53 A SHEATH, FR6.5 PRELUDE 11CM FR 6.5 was advanced into the Fem Art (right) using the Bernardinou dusty technique. 10:07:36 A catheter was advanced over a wire. OMNIPAQUE, 350 MG, 150ML 150ML was used for injectio ns. 10:09:57 ECHO called STAT 10:15:23 Echo arrived 10:23:17 CHEN in progress 10:31:[address] Nolan and Dr Lynch 10:45:17 CPR in progress End Study - Contrast Media Used In Study Contrast Total Opened (mL) Total Used (mL) Total Wasted (mL) Omnipaque 20 20 0 End Study - Maximum Contrast Load Max Contrast Load (mL) 275.0 End Study - Radiation Exposure Fluoro Time (minutes) 6.1 End Study - Patient Disposition Complications Not selected
[2016-08-31] MEDS ORDERED: ROCURONIUM INJ 50 MG/5 ML VIAL ONE (12:41)
[2016-08-31] MEDS ORDERED: ROCURONIUM INJ 50 MG/5 ML VIAL IV PUSH ONE (12:42)
--- NOTE | 2016-08-31 12:44 | MB ---
cc: ARIEL DUNN M.D. DATE OF CONSULTATION 08/31/2016 REASON FOR CONSULTATION At approximately 9:20 a.m. this morning, I received a call from the [facility] ICU nurse informing me that the patient had a STEMI and was being coded. Dr. Jad Lynch was initially called to the bedside and he notes that the patient appeared to be posturing, unresponsive and also hypotensive, but still had a pulse. The patient was intubated, pulse was then lost, the patient was given epinephrine times seven, transferred to the tailings dam laborer. CPR was initiated instantly and maintained throughout the entire code sequence. The plan was to have an Impella placed as soon as possible and to do re-look angiography. There were new ST elevations in the anterolateral leads. ST-elevation remained persistent in the anteroseptal leads which she had on admission. The patient was brought to the cardiac tailings dam laborer. Left femoral access was obtained by Dr. Gandara with an Impella placed. The initial mean pressure was 68 mmHg. I then accessed the right common femoral artery. I then placed a 6-Turkmen XB 3.5 guide and did angiography of the left system which showed widely patent stents in the mid LAD with JACQUELYN-III flow in the mid LAD. There was moderate diffuse disease in the proximal mid LAD up to 40-50 angiographically. The first diagonal artery was a medium to large sized vessel with an approximately 80-90% ostial proximal stenosis, but a 30 degrees angulation off the LAD. There were ocba-qk-vyvyn collaterals to a small right PDA. Would estimate the vessel size at less than 1 mm in diameter. There appeared to be some hint of ventricular contractility fluoroscopically. We immediately did immediately did a transesophageal echo with Dr. Jad Lynch. This revealed no MR. No free wall rupture. No papillary muscle rupture, normal-appearing right ventricle. The LV was diffusely akinetic with hypercontractility at the anterior base in particular. We continued IV Impella pump until approximately 10:15 at which point in time there was no spontaneous pulse or measurable blood pressure. The patient remained unresponsive. At that point in time, the code was called. Note also that the patient was bolused with heparin 7000 units. ACT was indeterminate. First reading was over 500, but the second reading was not done. We also repeated a stat hemoglobin that was within normal range and a stat potassium which was within normal range to rule out bleeding or significant electrolyte imbalance. MD LUIS Her/CLEO /12:16 PM /12:31 PM
[2016-08-31] MEDS ORDERED: EPINEPHrine HCL (1:10,000) 1 MG/10 ML SYRINGE IV ONE (14:27)
[2016-08-31] MEDS ORDERED: SODIUM BICARBONATE 8.4% INJ 50 MEQ/50 ML SYR IV ONE ×2 (14:27)
[2016-08-31] MEDS ORDERED: IOHEXOL 350 MG/ML 50 ML BTL (for Cath Lab) OTHER ONE (14:27)
[2016-08-31] MEDS ORDERED: ATROPINE SULFATE 1 MG/10 ML SYRINGE IV ONE (14:27)
--- NOTE | 2016-08-31 14:36 | EKG ---
Date Performed: 08/31/2016 Time Performed: 09:15:14 PTAGE: 61 years EKG: CONSIDER ACUTE ST ELEVATION AR Sinus bradycardia. Short QT interval Left axis devia tion Anterolateral ST elevation, CONSIDER ACUTE INFARCT Abnormal ECG PREVIOUS TRACING : 08/31/2016 04.03 Compared to the previous tracing, ST elevations anterolater ally is more prominent DOCTOR: Avery Angelo Interpretating Date/Time 08/31/2016 14:35:26
--- NOTE | 2016-08-31 16:09 | EKG ---
Date Performed: 08/31/2016 Time Performed: 04:03:12 PTAGE: 61 years EKG: Sinus rhythm Left axis deviation Possible anteroseptal infarct - age undetermined Lateral T wave changes may be d ue to myocardial ischemia, minimal ST elevation noted with deep T-wave inversions Abnormal ECG PREVIOUS TRACING : 08/30/2016 12.49 Compared to the previous tracing, baseline artifact affects reading. ST-T wave changes are new DOCTOR: Avery Angelo Interpretating Date/Time 08/31/2016 16:07:40
--- NOTE | 2016-08-31 19:14 | PD.CONS ---
[facility] Service Critical Care Medicine Consult Requested By Dr. Nolan Reason for Consult Acute altered mental status Primary Care Physician No Primary Care Physician History of Present Illness This is a 61-year-old female with a history of hypertension who originally presented on 08/30 with chest pain and an anterior STEMI. At that time she was taken to the [facility] and a bare metal stent to the mid LAD was placed. She was taken to the CVICU as CIC overflow. I was called to bedside by the patient' s nurse at approximately 9:05 AM for an acute change in mental status. According to the nurse, she was awake talking and eating breakfast when she became acutely unresponsive. There was a nurse practitioner who was close by who came in observed the patient and stated she felt that the patient was posturing with her left upper and lower extremity. I immediately came to the bedside of the patient and evaluated her. The patient was having agonal respirations. The patient was mottled. The patient was incontinent of urine. I immediately moved to emergent intubation to secure her airway, please see separate procedure note for details. At this point, I noticed that the patient had significant EKG changes on telemetry. We performed stat EKG which demonstrated severe ST elevations in all the precordial leads. My initial differential was an acute neurologic event such as a stroke or cerebral hemorrhage versus an acute cardiac event such as a in stent thrombosis. The original plan was to go to CT head emergently to rule out hemorrhagic stroke, however, the patient very rapidly hemodynamically decompensated into a PEA arrest. At this point ACLS was immediately instituted such that there was essentially no lapse in cerebral perfusion, since this was immediately recognized. At this point, the [facility] was called and the patient was taken emergently, CPR progress, to the [facility]. Within 12 hours of percutaneous coronary intervention, cardiac arrest most likely is secondary to rethrombosis. Lower on the differential would be tamponade, coronary dissection, aortic dissection, rectoperineal bleed, ventricular free wall rupture, papillary muscle rupture. During this time, I had multiple conversations with Dr. Nolan her attending manager apple. He was immediately driving to meet us in the [facility]. Once in the [facility], ACLS was ongoing, the patient was moved emergently to the [facility] table and with the assistance of Dr. Gandara, an Impella was placed emergently, CPR progress, to assist in cerebral perfusion. Once the Impella was in place, flows were approximately 2-2-1/2 L/m. At this point, Dr. Nolan took over and began the emergent left heart catheterization which demonstrated patent coronary vessels and no thrombosis. Dr. Nolan and I discussed the remainder of the differential. A CHEN was emergently brought in and I performed the echo which ruled out ventricular free wall rupture, papillary muscle rupture, coronary or ascending aortic dissection (please see separately documented procedure note). The CHEN did demonstrate nearly akinetic/severely globally hypokinetic LV with almost no ejections. RV function appeared somewhat preserved. At this point, ACLS had been ongoing for greater than 70 minutes. Patient's pupils were fixed and dilated, and without any echocardiographic evidence of ventricular recovery, with no obvious intervenable pathology, the patient had no home for meaningful recovery. Thus, at this point, Dr. Nolan and I agreed this cardiac event was non-survivable and the impella was stopped. Time of was 10:31. Review of Systems ROS Limitations: Clinical Condition, Unresponsive Past Family Social History Allergies: Coded Allergies: Penicillin (Verified Allergy, Mild, 08/30/16) Past Medical History The complete past medical history is unobtainable due to the clinical condition of the patient. The patient has history of hypertension Past Surgical History Complete past surgical history is unobtainable secondary to patient's clinical condition. The patient underwent upper cutaneous coronary intervention yesterday Reported Medications Complete medication list is unobtainable secondary to the patient's clinical condition Active Ordered Medications See MAR Family History Unobtainable secondary to patient's clinical condition Social History Unobtainable secondary to patient's clinical condition Physical Exam Vital Signs Vital Signs Date Time Temp Pulse Resp B/P Pulse Ox O2 Delivery O2 Flow Rate FiO2 08/31/16 09:30 15.00 100 08/31/16 08:00 94 08/31/16 07:00 80 08/31/16 06:00 78 08/31/16 05:00 84 08/31/16 04:00 91 08/31/16 03:00 92 18 129/82 96 08/31/16 03:00 92 08/31/16 02:00 70 08/31/16 02:00 95 18 123/80 94 08/31/16 01:00 76 08/31/16 00:00 70 08/31/16 00:00 70 18 112/70 94 08/30/16 23:00 98.6 74 20 105/72 90 08/30/16 23:00 74 08/30/16 22:00 70 20 104/73 96 08/30/16 22:00 70 08/30/16 21:41 95 Nasal Cannula 2.00 08/30/16 21:00 75 20 132/67 95 08/30/16 21:00 75 08/30/16 20:30 78 20 110/76 96 08/30/16 20:00 80 18 116/88 92 08/30/16 20:00 80 08/30/16 19:45 70 18 108/79 91 08/30/16 19:17 76 18 111/73 95 08/30/16 19:00 97.9 77 18 125/82 08/30/16 19:00 77 Physical Exam Initial physical evaluation: Patient was mottled, agonal respirations, severe distress. Pupils 2 mm, equal, reactive. Obviously incontinent of urine in the bed. Cyanotic Concluding physical examination: Pupils 7 mm, fixed, dilated, nonreactive. Mottled, cyanotic. Pulseless. Laboratory Laboratory Tests Test 08/31/16 08/31/16 03:58 09:20 White Blood Count 16.2 Red Blood Count 4.91 Hemoglobin 14.0 Hematocrit 40.7 Mean Corpuscular Volume 82.8 Mean Corpuscular Hemoglobin 28.4 Mean Corpuscular Hemoglobin 34.3 Concent Red Cell Distribution Width 13.7 Platelet Count 276 Mean Platelet Volume 8.8 Neutrophils (%) (Auto) 69.3 Lymphocytes (%) (Auto) 17.7 Monocytes (%) (Auto) 10.4 Eosinophils (%) (Auto) 2.1 Basophils (%) (Auto) 0.5 Neutrophils # (Auto) 11.2 Lymphocytes # (Auto) 2.9 Monocytes # (Auto) 1.7 Eosinophils # (Auto) 0.3 Basophils # (Auto) 0.1 CBC Comment DIFF FINAL Differential Comment Sodium Level 141 Potassium Level 4.0 Chloride Level 107 Carbon Dioxide Level 24.4 Anion Gap 10 Blood Urea Nitrogen 14 Creatinine 0.86 Estimat Glomerular Filtration 67 Rate Random Glucose 104 Calcium Level 8.3 Total Creatine Kinase 170 Triglycerides Level 151 Cholesterol Level 183 LDL Cholesterol 113 HDL Cholesterol 39.7 Cholesterol/HDL Ratio 4.60 Bedside Hemoglobin 14.6 Bedside Hematocrit 43.0 Bedside Sodium 138 Bedside Potassium 3.8 Bedside Chloride 105 Bedside Blood Urea Nitrogen 15 Bedside Creatinine 1.1 Bedside Glucose 119 Result Diagram: 08/31/16 0358 08/31/16 0358 Imaging Last Impressions Chest X-Ray 08/30/16 0000 Signed Impressions: Service Date/Time: Tuesday, August 30, 2016 12:58 - CONCLUSION: 1. No acute cardiopulmonary findings Leighton Rivera MD Assessment and Plan Assessment and Plan Assessment: 61-year-old female status post recent STEMI with BMS to LAD now with acute cardiac arrest without any evidence of a reversible cause. Active Problems that I managed during my time spent at the bedside with the patient: Acute Encephalopathy Possible acute CVA Acute hypoxic and hypercarbic respiratory failure Severe metabolic acidosis PEA Arrest Acute STEMI Acute left ventricular systolic dysfunction Cardiogenic Shock Plan: please see aforementioned documentation of our [id number] plan of care. This patient remained critically ill with one or more organ systems which were a threat to life from the time I initially evaluated them through the entire time I remained at bedside until time of was called. I have spent in excess of 115 minutes discontinuously in the care and management of this patient. This time did not include separately billed procedures. CPR/ACLS was not separately billed. This time is exclusive of procedures, and includes, but is not limited to, evaluation of the patient, review of the medical record, discussions with family, consultants, nursing staff, or respiratory therapy, and documentation in the medical record. Mati Valdovinos MD Aug 31, 2016 19:14
--- NOTE | 2016-08-31 19:15 | PD.PROCEDR ---
Procedure Note Procedure Endotracheal Intubation Diagnosis: Altered mental status Indications: Hypoxic respiratory failure Consent: Consent is deemed emergent or medically necessary Anesthesia: Versed 5 mg IV, Rocuronium 100 mg IV Description of the Procedure: The patient was positioned in the sniffing position. Pre-oxygenation was performed using a [id number]. Anesthesia was induced via rapid sequence. A Rojas #2 was used for laryngoscopy and a Grade II view was obtained with a mild amount of cricoid pressure. A 8.5 cuffed endotracheal tube was inserted atraumatically through the vocal cords. Confirmation of correct endotracheal tube placement was made by equal and bilateral breath sounds and colorimetric CO2 detection. The endotracheal tube was secured at 22 cm at the teeth. There were no immediate complications noted. The patient was profoundly unstable at the beginning of the procedure, and resuscitation was ongoing. I personally performed the procedure. Mati Valdovinos MD Aug 31, 2016 19:15
--- NOTE | 2016-08-31 19:22 | PD.PROCEDR ---
Procedure Note Procedure Procedure: Transesophageal Echocardiography Diagnosis: Cardiac arrest Indications: Patient is in cardiac arrest status post prior percutaneous coronary intervention. Need to rule out life-threatening pathology, including acute coronary dissection, ventricular free wall rupture, papular muscle rupture , pericardial effusion with tamponade. Consent: Consent is deemed emergent or medically necessary Anesthesia: None Description of the Procedure: The patient was mechanically ventilated. The patient was placed on 100% FIO2. The echo probe was inserted easily and without resistance. At the conclusion of the procedure, the echo probe was removed. Findings: I performed this echocardiogram with Dr. Nolan at bedside in this unstable patient. Impressions: 1) Severely reduced global LV systolic dysfunction. Basal septal hypokinesis with severe hypokinesis of the remainder of the LV, most pronounced in the lateral wall and near akinesis of the anterior wall. severe hypokinesis of the apex. 2) Reduced RV function 3) no ventricular free wall rupture. No ventricular septal defect 4) No clinically significant mitral regurgitation 5) Impella catheter was initially aimed at the ventricular septum and was withdrawn slightly with improved flow and positioning 6) trace pericardial effusion without echocardiographic evidence of tamponade. 7) no dissection of the ascending aorta The patient remained hemodynamically unstable throughout. Due to the emergent nature of the procedure, images were not captured electronically. Dr. Raffi Nolan was at bedside for the entire procedure and confirmed the findings. I personally performed the procedure. Mati Valdovinos MD Aug 31, 2016 19:21
--- NOTE | 2016-08-31 19:56 | EKG ---
Date Performed: 08/30/2016 Time Performed: 12:49:16 PTAGE: 61 years EKG: Sinus rhythm Baseline artifact affects read Severe right axis deviation Anterolateral infarct - age undetermined Abnormal ECG PREVIOUS TRACING : 08/30/2016 11.31 Compared to the previous tracing, probably no significant c flor DOCTOR: Avery Angelo Interpretating Date/Time 08/31/2016 19:54:07
--- NOTE | 2016-08-31 20:05 | EKG ---
Date Performed: 08/30/2016 Time Performed: 11:31:40 PTAGE: 61 years EKG: Sinus rhythm Left axis deviation Possible lateral infarct - age undetermined Anteroseptal infarct - age undetermi bonnie Abnormal ECG PREVIOUS TRACING : 12/18/1995 10.27 Compared to the previous tracing, significant change in QRS pattern due to lateral and anteroseptal infarcts DOCTOR: Avery Angelo Interpretating Date/Time 08/31/2016 20:04:09
[2016-08-31] MEDS ORDERED: SODIUM CHLORIDE 0.9% FLUSH 10 ML FLUSH SCH (21:00)
[2016-09-01] MEDS ORDERED: ASPIRIN 81 MG CHEW TAB PO SCH (09:00)
[2016-09-01] MEDS ORDERED: CLOPIDOGREL 75 MG TAB PO SCH (09:00)
--- NOTE | 2016-09-01 14:00 | ECHRPT ---
Indication: Cardiac arrest due to other underlying condition CONCLUSIONS LV appears severely hypokinetic to akinetic with hypercontractility of basal anterior wall, ef@5%, n o evidence of free wall rupture, ruptured papillary muscle or vsd. Rv Appears normal in size; trace mr , small pericardial effusion BP: / HR: Rhythm: Technical Quality: Medications Complications Proc. Components Raffi Nolan MD, FACC, FSCAI (Electronically Signed) Final Date:01 September 2016 13:59
== END 2016-08-31 14:28 | disposition expired | DRG 215 ==
LOC: PHED 11:07 → PHEDA 13:04 → HCVR 15:03
PROVIDERS: ADMIT Internal Medicine Interventional Cardiology; ATTEND Internal Medicine Interventional Cardiology
PROC: 02703EZ Dilation of Coronary Artery, One Artery with Two Intraluminal Devices, Percutaneous Approach (ICD-10-PCS; 2016-08-30)
PROC: 4A023N7 Measurement of Cardiac Sampling and Pressure, Left Heart, Percutaneous Approach (ICD-10-PCS; 2016-08-30)
PROC: B2111ZZ Fluoroscopy of Multiple Coronary Arteries using Low Osmolar Contrast (ICD-10-PCS; 2016-08-30)
PROC: B2151ZZ Fluoroscopy of Left Heart using Low Osmolar Contrast (ICD-10-PCS; 2016-08-30)
PROC: 02HA3RZ Insertion of Short-term External Heart Assist System into Heart, Percutaneous Approach (ICD-10-PCS; principal; 2016-08-31)
PROC: 5A0221D Assistance with Cardiac Output using Impeller Pump, Continuous (ICD-10-PCS; 2016-08-31)
PROC: 4A023N7 Measurement of Cardiac Sampling and Pressure, Left Heart, Percutaneous Approach (ICD-10-PCS; 2016-08-31)
PROC: B2111ZZ Fluoroscopy of Multiple Coronary Arteries using Low Osmolar Contrast (ICD-10-PCS; 2016-08-31)
PROC: B246ZZ4 Ultrasonography of Right and Left Heart, Transesophageal (ICD-10-PCS; 2016-08-31)
PROC: 0BH17EZ Insertion of Endotracheal Airway into Trachea, Via Natural or Artificial Opening (ICD-10-PCS; 2016-08-31)
DX: I21.09 ST elevation (STEMI) myocardial infarction involving other coronary artery of anterior wall (principal); R57.0 Cardiogenic shock; J96.01 Acute respiratory failure with hypoxia; J96.02 Acute respiratory failure with hypercapnia; G93.40 Encephalopathy, unspecified; I11.0 Hypertensive heart disease with heart failure; I50.9 Heart failure, unspecified; E87.2 Acidosis; I42.9 Cardiomyopathy, unspecified; R32 Unspecified urinary incontinence; I25.110 Atherosclerotic heart disease of native coronary artery with unstable angina pectoris; D75.1 Secondary polycythemia
CPT/HCPCS: 31500; 33990; 71010; 80048; 80061; 82435; 82550; 82552; 82565; 82947; 84132; 84295; 84484; 84520; 85002; 85025; 85610; 85730; 92928; 92950; 93005; 93312; 93320; 93325; 93454; 93458; 93571; 96374; C1769; C1876; C1887; C1893; J0153; J0171; J0461; J1644; J1940; J2250; J3010; J3246; Q9967